=== PATIENT | female | born 1985 | race Caucasian/White ===

== ENCOUNTER → 2024-04-19 10:28 | Outpatient (REF) | payer BC, SELFPAY | LOC: RAD 10:28 | PROVIDERS: ATTENDING PHYSICIAN Urology; FAMILY PHYSICIAN Nurse Practitioner | DX: N39.0 Urinary tract infection, site not specified (principal); N39.41 Urge incontinence; N39.3 Stress incontinence (female) (male); M62.89 Other specified disorders of muscle; N94.10 Unspecified dyspareunia; N94.6 Dysmenorrhea, unspecified | CPT/HCPCS: 76770; 76830 ==

== ENCOUNTER → 2024-07-30 06:19 | Day surgery (SDC) | payer BC, SELFPAY | LOC: GI 06:19 | PROVIDERS: ATTENDING PHYSICIAN Internal Medicine | DX: K21.9 Gastro-esophageal reflux disease without esophagitis (principal); R12 Heartburn | CPT/HCPCS: 43239; 88305; 88342 ==